=== PATIENT | female | born 1965 | race American Indian/Alaskan Native ===

== ENCOUNTER 2016-09-20 13:49 | Outpatient (CLI) | payer BC ==
--- NOTE | 2016-09-21 16:27 | Mammography Report ---
BILATERAL DIGITAL SCREENING MAMMOGRAM with CAD: 09/20/16 13:49:00 CLINICAL: Routine screening. COMPARISON:09/18/15 FINDINGS: The breasts are heterogeneously dense, which may obscure small masses. No mass, architectural distortion or suspicious calcifications. IMPRESSION: No mammographic evidence of malignancy. BI-RADS CATEGORY: 1 - - Negative RECOMMENDATION: Routine mammographic screening in one year. COMMENT: Patient follow-up letters are generated by our [employer] application. The
== END 2016-09-20 13:50 | disposition home or self-care (01) ==
LOC: SPVWC 13:49
PROVIDERS: ATTEND Obstetrics & Gynecology Gynecology
DX: Z12.31 Encounter for screening mammogram for malignant neoplasm of breast (principal)
CPT/HCPCS: 77067; G0202

== ENCOUNTER 2017-10-14 09:33 | Outpatient (CLI) | payer BC ==
--- NOTE | 2017-10-14 10:51 | Mammography Report ---
Screening tomomammogram and 2-D mammogram: Routine mammogram images are performed and compared to her prior exam in August 2016. There is a heterogeneously dense and symmetrically distributed fibroglandular pattern. A circumscribed 5.4 mm nodule is identified in the infero-medial right breast on standard and tomographic images. On the tomographic images only there is an 8.3 mm circumscribed nodule in the posterior central right breast. The overall breast pattern is unchanged from her prior examination however the nodules currently noted in the right breast are not identified on the prior exam. The findings are not otherwise remarkable. CAD used. Impression: Newly identified right breast nodules. Recommendation: Right breast ultrasound. BI-RADS CATEGORY: 0 = Needs additional imaging evaluation ACR BI-RADS MAMMOGRAPHIC CODES: 0 = Needs additional imaging evaluation; 1 = Negative; 2 = Benign; 3 = Probably benign; 4 = Suspicious; 5 = Malignant; 6 = Known biopsy-proven malignancy COMMENT: 1. Dense breast tissue, i.e., adenosis, fibrocystic changes, etc., may obscure an underlying neoplasm. 2. Approximately 10% of cancers are not detected with mammography. 3. A negative mammography report should not delay biopsy if a clinically suspicious mass is present.
== END 2017-10-14 09:34 | disposition home or self-care (01) ==
LOC: MAMMO 09:33
PROVIDERS: ATTEND Obstetrics & Gynecology Gynecology
DX: Z12.31 Encounter for screening mammogram for malignant neoplasm of breast (principal)
CPT/HCPCS: 77063; 77067

== ENCOUNTER 2017-12-21 09:42 | Outpatient (CLI) | payer BC ==
--- NOTE | 2017-12-22 16:14 | Ultrasound Report ---
RIGHT BREAST ULTRASOUND: 12/21/17 09:42:00 CLINICAL: Recalled for further evaluation of circumscribed nodular densities identified at screening. COMPARISON: 10/14/17 screening mammogram with digital breast tomosynthesis (DBT) FINDINGS: Ultrasound of the right breast(including all four quadrants and the retroareolar area) was performed. A subcutaneous round cyst contiguous to the dermis measures 5 x 4 x 5 mm and is located at 4 o'clock 7 cm from the nipple. It correlates with what is described as a 5.4 mm nodule in the inferior medial breast on the mammogram. An oval cyst at 8 o'clock 3 cm from the nipple measures 4 x 3 x 3 mm. It has low level internal echoes and has a mammographic correlate on both MLO and CC views. No solid mass is identified. No ultrasound finding is identified to correlate with the 8mm posterior central density on the mammogram. However, it is low suspicion with smooth circumscribed margins. IMPRESSION: Benign cysts at 4 o'clock and 8 o'clock which correlate with mammographic findings. However, no ultrasound finding to correlate with a probably benign 8mm circumscribed density on the mammogram. Recommend followup right mammogram with digital breast tomosynthesis (DBT) in March 2018. BI-RADS 3 - - Probably Benign
== END 2017-12-21 09:43 | disposition home or self-care (01) ==
LOC: MAMMO 09:42
PROVIDERS: ATTEND Obstetrics & Gynecology Gynecology
DX: N60.01 Solitary cyst of right breast (principal); N63.10 Unspecified lump in the right breast, unspecified quadrant

== ENCOUNTER 2018-05-01 14:57 | Outpatient (CLI) | payer BC ==
--- NOTE | 2018-05-01 16:26 | Mammography Report ---
RIGHT DIGITAL DIAGNOSTIC MAMMOGRAM with CAD and DIGITAL BREAST TOMOSYNTHESIS (DBT) and RIGHT BREAST ULTRASOUND: 05/01/18 14:57:00 CLINICAL: Followup right palpable nodule. COMPARISON:10/14/17 mammogram and 12/21/17 right breast ultrasound FINDINGS: The previously described oval circumscribed lesion in the inferior breast has enlarged and extends to the skin on the mammogram. No other mass, architectural distortion or suspicious calcifications. Targeted ultrasound of the right breast demonstrated a benign sebaceous cyst at 4 o'clock 8 cm from the nipple measuring 8 x 4 x 14 mm. It correlates with the palpable lump. IMPRESSION: Benign sebaceous cyst at 4 o'clock 8 cm from the nipple. BI-RADS CATEGORY: 2 - - Benign RECOMMENDATION: Return to routine mammographic screening. COMMENT: Patient follow-up letters are generated by our [employer] application.
== END 2018-05-01 14:58 | disposition home or self-care (01) ==
LOC: SPVWC 14:57
PROVIDERS: ATTEND Obstetrics & Gynecology
DX: N60.81 Other benign mammary dysplasias of right breast (principal)
CPT/HCPCS: 76642; 77065; G0279